=== PATIENT | male | born 1985 | race American Indian/Alaskan Native ===

== ENCOUNTER 2019-07-25 21:39 | Emergency (ER) | payer MEDICARE ==
[2019-07-25 22:20] LABS: Basophils # (Auto) 0.1 K/mm3 (0.0-0.1); Eosinophils # (Auto) 0.3 K/mm3 (0.0-0.4); Eosinophils % (Auto) 4.6 % (0.0-4.3); Hematocrit 49.4 % (35.5-45.6); Hemoglobin 16.4 gm/dl (11.8-15.2); Lymphocytes # (Auto) 1.7 K/mm3 (1.2-5.4); Lymphocytes % (Auto) 29.5 % (13.4-35.0); Mean Corpuscular HGB Conc 33 % (32-34); Mean Corpuscular Volume 89 fl (84-94); Monocytes # (Auto) 0.7 K/mm3 (0.0-0.8); Monocytes % (Auto) 11.9 % (0.0-7.3); Platelet Count 222 K/mm3 (140-440); Red Blood Count 5.54 M/mm3 (3.65-5.03); Red Cell Distribution Width 15.2 % (13.2-15.2)
[2019-07-25 22:30] LABS: BUN/Creatinine Ratio 17; Blood Urea Nitrogen 20 mg/dL (9-20); Calcium 9.8 mg/dL (8.4-10.2); Hemolysis Index 5
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
[2019-07-25 23:04] LABS: Bilirubin,Urine NEG (Negative); Blood,Urine NEG (Negative); Color,Urine Yellow (Yellow); Mucus,Urine FEW /HPF; Urobilinogen,Urine < 2.0 mg/dL (<2.0)
[2019-07-25 23:37] LABS: Amphetamine Screen,Urine PRESUMPTIVE NEGATIVE; Benzodiazepines Screen,Urine PRESUMPTIVE NEGATIVE; Cannabinoid Screen,Urine PRESUMPTIVE NEGATIVE; Cocaine Screen,Urine PRESUMPTIVE NEGATIVE; Methadone Screen,Urine PRESUMPTIVE NEGATIVE; Opiate Screen,Urine PRESUMPTIVE NEGATIVE
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
[2019-07-26] MEDS ORDERED: ACETAMINOPHEN 325 MG TAB PO ONE (10:42)
[2019-07-27 09:08] VITALS: BP 121/65
[2019-07-27] MEDS ORDERED: DIVALPROEX ER 500 MG TAB PO SCH (10:00)
--- NOTE | 2019-07-27 12:21 | Progress Note ---
Subjective - Reason for Consult Consult date: 07/27/19 Reason for consult: Psychiatry Follow-up - Chief Complaint Chief complaint: "I will not do again" 34 AA male who presented to the ER for HI's. Today the patient was calm during the assessment. Per collateral information from he patient's mother Laura Salazar at [phone], she stated that her son's behavior was unusual for him. She stated that he wasn't himself. She stated that her son is complaint wit his medication (Zyprexa/Depakote). She stated that her son will be seeing a new psychiatrist Dr Conway 07/31/19. She stated that she that her son can return home once discharged. The patient have been pleasant since his arrival to the ER. He denies SI/HI's and AVH's. Mental Status Exam - Vital signs Last Vital Signs Temp 98.1 F 07/27/19 08:15 Pulse 84 07/27/19 08:15 Resp 18 07/27/19 08:15 BP 121/65 07/27/19 08:15 Pulse Ox 99 07/27/19 08:15 - Exam Narrative exam: MSE: Appearance: calm, cooperative Behavior: regular eye contact Speech: regular rate and tone Mood: "okay" Affect: congruent to mood Thought Process: circumstantial Thought Content: denies SI/HI's and AVH's Motor Activity: sitting up in bed Cognition: A/O x3 Insight: fair Judgment: fair Assessment and Plan Impression: Unspecified Intellectual Disability (mild to moderate). Today the patient was calm during the assessment. UDS is negative. The patient is no threat to others. DDx: Mood DO Recommendation/Plan: Rescind 1013. The patient do not need any prescriptions. Dispo: The patient can follow up with Dr Kumari or the [facility] for outpatient psy services. Staffed with Dr Aravind Silva.
== END 2019-07-27 14:19 | disposition home or self-care (01) ==
LOC: ED 21:39
DX: F79 Unspecified intellectual disabilities (principal); R45.850 Homicidal ideations; F20.9 Schizophrenia, unspecified; F32.9 Major depressive disorder, single episode, unspecified
CPT/HCPCS: 36415; 80048; 80307; 80320; 81001; 85025; G0480